=== PATIENT | male | born 1950 | race Hispanic/Latino ===

== ENCOUNTER 2016-08-11 08:39 | Day surgery (SDC) | payer MEDICARE, MEDICAID ==
[2016-08-05 07:33] VITALS: BMI 21.5
[~2016-08-11 08:39] MED LIST: Gentamicin 160 MG in Sodium Chloride 0.9% 100 ML IVPB ONE
[2016-08-11] MEDS ORDERED: Lidocaine 2% Jelly (Uro-Jet) ONE (10:10)
[2016-08-11] MEDS ORDERED: Ciprofloxacin 400mg/200ml D5W 0 ML IVPB ONE (10:10)
[2016-08-11] MEDS ORDERED: Propofol 10 mg/ml Inj (20 ML) ONE (10:11)
[2016-08-11] MEDS ORDERED: Midazolam 2 MG/2 ML VIAL ONE (10:11)
[2016-08-11] MEDS ORDERED: Lactated Ringer's 1,000 ML IV ONE (10:15)
--- NOTE | 2016-08-11 10:37 | PCM.SURG1 ---
Surgeon's Initial Post Op Note - Surgeon's Notes Surgeon: Edmar Campaign Consultant: N/A Type of Anesthesia: General LMA Anesthesia Administered By: Staff Pre-Operative Diagnosis: Hematuria Operative Findings: MIN. regrowth of prostatic tissue Post-Operative Diagnosis: hematuria Operation Performed: cystoscopy Specimen/Specimens Removed: na Estimated Blood Loss: EBL {In ML}: 0 Blood Products Given: N/A Drains Used: No Drains Post-Op Condition: Good Date of Surgery/Procedure: 08/11/16 Time of Surgery/Procedure: 10:36
[2016-08-11 11:38] VITALS: RESP 15; O2SAT 99
[2016-08-11 13:23] VITALS: TEMP 98.3
[2016-08-11 13:24] VITALS: BP 119/64; PULSE 73
--- NOTE | 2016-08-11 19:06 | OP ---
PROCEDURE DATE: 08/11/2016 PREOPERATIVE DIAGNOSIS: Gross hematuria. POSTOPERATIVE DIAGNOSIS: Gross hematuria. PROCEDURE: Cystoscopy. FINDINGS: Trilobar hypertrophy of the prostate with some small amount of residual left lateral lobe tissue. No evidence of active bleeding. No urothelial tumor or stone. Clear efflux from both urete ral orifices. DESCRIPTION OF PROCEDURE: Prior to the procedure, a detailed informed consent was obtained from the patient. He is aware of the risks and complications of this procedure, which was also explained to h is family. He was identified. A timeout was taken according to the rules and regulations of [facility]. The patient was given prophylactic antibiotics. He was then cystoscoped with #21 Storz pa nendoscope. The pendulous and membranous urethras were normal. There was no stricture. The prostat ic urethra showed evidence of previous laser surgery. There was a small amount of regrowth of prosta tic tissue, which was not bleeding and this was mostly on the left lateral lobe. The bladder was ent ered atraumatically. There was +2 trabeculation of the bladder. There was no evidence of urothelial tumor or stone. Both ureteral orifices effluxed clear urine. Based on these findings, it is not cl ear whether the patient had hematuria. Persistent prostatic tissue does not seem significant as far as obstruction. We recommend that the patient be observed. If he has already had upper tract studie s, no further evaluation. If no upper tract studies are done, the patient deserves upper tract studi es. Dane Hyatt MD cc: [id number] TT: 08/11/2016 19:06:13 rn
== END 2016-08-11 12:35 | disposition home or self-care (01) ==
LOC: C.SDS 08:39
PROVIDERS: ATTEND Urology
DX: R31.9 Hematuria, unspecified (principal); N32.89 Other specified disorders of bladder; N40.0 Benign prostatic hyperplasia without lower urinary tract symptoms
CPT/HCPCS: 52000; J1580; J7120